=== PATIENT | male | born 1955 | race Hispanic/Latino ===

== ENCOUNTER 2018-07-05 13:38 | Outpatient (CLI) | payer BC ==
--- NOTE | 2018-07-05 15:53 | RAD ---
PELVIS ONE VIEW: 07/05/18 The bony pelvis appears intact. The hip joints are symmetrical and normal in width. No fractures were detected. The SI joints were unremarkable. The symphysis shows no widening of off-set. IMPRESSION: No acute finding. POS: HOME
--- NOTE | 2018-07-05 15:54 | RAD ---
SACRUM AND COCCYX 07/05/18 No fracture was visible. The SI joints are symmetrical and the arcuate lines of the sacrum appear int act. The coccyx was unremarkable in appearance as well. IMPRESSION: No significant findings. POS: HOME
== END 2018-07-05 13:39 | disposition home or self-care (01) ==
LOC: BURRAD 13:38
PROVIDERS: ATTEND Family Medicine
DX: S30.0XXA Contusion of lower back and pelvis, initial encounter (principal)
CPT/HCPCS: 72170; 72220